=== PATIENT | male | born 1965 | race Caucasian/White ===

== ENCOUNTER 2017-11-28 21:13 | Emergency (ER) | payer OTHER ==
[~2017-11-28] VITALS: Ht 177.8 cm; Wt 84.1 kg
[2017-11-28 21:16] VITALS: BP 139/94; TEMP 97
[2017-11-28] MEDS ORDERED: VYTORIN 10 MG-21 TAB PO (21:32)
[2017-11-28] MEDS ORDERED: HCTZ12.5TAB PO (21:32)
[2017-11-28] MEDS ORDERED: NORCO 325 MG-51 TAB PO (21:58)
[2017-11-28 22:52] VITALS: PULSE 104
== END 2017-11-28 22:44 | disposition home or self-care (01) ==
LOC: COL.ER 21:13
DX: G89.29 Other chronic pain (principal); M54.9 Dorsalgia, unspecified
CPT/HCPCS: J1100; J2360